=== PATIENT | female | born 1985 | race Caucasian/White ===

== ENCOUNTER 2019-03-13 07:32 | Day surgery (SDC) | payer OTHER ==
[~2019-03-13] VITALS: Ht 162.6 cm; Wt 102.5 kg
[2019-03-13] MEDS ORDERED: MIDAZOLAM 2 MG/2 ML VIAL ONE (10:20)
[2019-03-13] MEDS ORDERED: LIDOCAINE 2% 100 MG/5 ML SYR IVP ONE (10:27)
[2019-03-13] MEDS ORDERED: SEVOFLURANE 250 ML BTL INH ONE (10:27)
[2019-03-13] MEDS ORDERED: PROPOFOL 200 MG/20 ML VIAL IV ONE (10:27)
[2019-03-13] MEDS ORDERED: BLOOD GLUCOSE MONITORING 1 DEV DEV FS SCH (11:15)
[2019-03-13] MEDS ORDERED: ONDANSETRON 4 MG/2 ML VIAL IVP PRN (11:15)
[2019-03-13] MEDS ORDERED: HYDROmorphone 1 MG/ML AMP IVP PRN (11:15)
[2019-03-13] MEDS ORDERED: HYDROmorphone PFS 2 MG/ML SYR ONE (11:43)
== END 2019-03-13 13:25 | disposition home or self-care (01) ==
LOC: MOR 07:32 → MMU 07:36 → MOR 13:25
PROVIDERS: ATTEND Obstetrics & Gynecology
DX: N92.0 Excessive and frequent menstruation with regular cycle (principal); R93.89 Abnormal findings on diagnostic imaging of other specified body structures; E66.3 Overweight; E87.5 Hyperkalemia; E11.22 Type 2 diabetes mellitus with diabetic chronic kidney disease; I12.9 Hypertensive chronic kidney disease with stage 1 through stage 4 chronic kidney disease, or unspecified chronic kidney disease; N18.9 Chronic kidney disease, unspecified; D63.1 Anemia in chronic kidney disease
CPT/HCPCS: 58558; 82948; J1170; J2001; J2250; J2704; J7030; 88305